=== PATIENT | male | born 1955 | race Hispanic/Latino ===

== ENCOUNTER 2017-03-31 06:56 | Emergency (ER) | payer SELFPAY ==
[2017-03-31] MEDS ORDERED: LIDOCAINE HCL 1% 20 ML VIAL ONE (07:28)
[2017-03-31 07:30] LABS: BASOPHILS % (AUTO) 0.6 % (0.0-5.0); EOSINOPHILS % (AUTO) 3.2 % (0.0-8.0); HEMATOCRIT 42.7 % (42-54); LYMPHOCYTES % (AUTO) 11.1 % (21.0-51.0); MEAN CORPUSCULAR HEMOGLOBIN 31.2 pg (27.0-33.0); MEAN CORPUSCULAR HGB CONC 34.1 g/dL (32.0-36.0); MEAN CORPUSCULAR VOLUME 91.6 fL (79-99); MONOCYTES % (AUTO) 9.3 % (3.0-13.0); NEUTROPHILS % (AUTO) 75.8 % (40.0-77.0); PLATELET COUNT (AUTO) 211 K/uL (130-400); RED BLOOD CELL COUNT(AUTO) 4.66 MIL/uL (4.50-6.20); RED CELL DISTRIBUTION WIDTH 13.8 % (11.0-15.5); WHITE BLOOD COUNT (AUTO) 6.3 K/uL (4.8-10.8)
[2017-03-31 07:42] LABS: CREATININE 0.9 mg/dL (0.5-1.5); POTASSIUM 3.4 mmol/L (3.5-5.1)
[2017-03-31] MEDS ORDERED: SODIUM CHLORIDE 0.9% 50 ML IV ONE (08:01)
[2017-03-31] MEDS ORDERED: CEFTRIAXONE SODIUM 1 GM ONE (08:01)
[2017-03-31] MEDS ORDERED: TETANUS/DIPHTHERIA TOXOID [ADULT] 0.5 ML VIAL IM ONE (08:02)
== END 2017-03-31 08:39 | disposition home or self-care (01) ==
LOC: EDH 06:56
DX: S81.811A Laceration without foreign body, right lower leg, initial encounter (principal); L03.115 Cellulitis of right lower limb; L03.116 Cellulitis of left lower limb; Z72.0 Tobacco use; W45.8XXA Other foreign body or object entering through skin, initial encounter; Y93.89 Activity, other specified; Y92.89 Other specified places as the place of occurrence of the external cause; Y99.8 Other external cause status
CPT/HCPCS: 10060; 36415; 80048; 85025; 90471; 90714; 96374; 99284; J0696

== ENCOUNTER 2017-04-08 09:13 | Emergency (ER) | payer SELFPAY | END 2017-04-08 10:13 | disposition home or self-care (01) | LOC: EDH 09:13 | DX: Z48.01 Encounter for change or removal of surgical wound dressing (principal); Z72.0 Tobacco use | CPT/HCPCS: 99281 ==